=== PATIENT | male | born 1960 | race African-American/Black ===

== ENCOUNTER 2017-04-06 12:55 | Inpatient (IN) | payer MEDICARE, BC ==
[~2017-04-06] VITALS: Ht 172.7 cm; Wt 84.0 kg
[~2017-04-06 12:55] MED LIST: CARV3.1242 PO; CLOP75TA33 PO
[2017-04-06] MEDS ORDERED: ONDANSETRON HCL 4MG/2ML VIAL IV STA (13:19)
[2017-04-06] MEDS ORDERED: SODIUM CHLORIDE 0.9% 1,000 ML IV ONE (13:19)
[2017-04-06] MEDS ORDERED: MORPHINE SULFATE 4 MG/ML CPJ (NOT FOR IM USE) IV STA (13:19)
[2017-04-06 14:03] LABS: BASOPHILS % 0.8 % (0.0-2.0); EOSINOPHILS % 3.5 % (0.0-5.0); HEMATOCRIT. 32.3 % (42.0-52.0); HEMOGLOBIN. 10.7 g/dL (14.0-18.0); LYMPHOCYTES % 26.4 % (20.0-50.0); MEAN CORPUSCULAR HEMOGLOBIN 26.6 pg (28.0-32.0); MEAN CORPUSCULAR VOLUME 80.2 fL (80.0-94.0); MEAN PLATELET VOLUME 7.9 fl (7.4-10.4); MONOCYTES % 6.9 % (2.0-8.0); NEUTROPHILS % 62.4 % (40.0-76.0); PLATELET 214 x1000/uL (130-400); RED BLOOD CELL COUNT 4.03 mill/uL (4.7-6.1); RED CELL DISTRIBUTION WIDTH 17.6 % (11.6-14.6)
[2017-04-06 14:12] LABS: PARTIAL THROMBOPLASTIN TIME 25.9 sec (23.4-31.0); PROTHROMBIN TIME 10.6 sec (9.4-11.6)
[2017-04-06 14:21] LABS: CARBON DIOXIDE 28 mEq/L (21-32); CHLORIDE 111 mEq/L (98-107); CREATINE KINASE 393 IU/L (39-308)
[2017-04-06 14:22] LABS: TROPONIN I 0.04 ng/mL (0.00-0.04)
[2017-04-06 14:24] LABS: CREATINE KINASE MB FRACTION 2.9 ng/mL (0.5-3.6)
[2017-04-06] MEDS ORDERED: ASPIRIN 81MG TABLET PO ONE (14:45)
[2017-04-06] MEDS ORDERED: CLONIDINE 0.1MG TABLET PO PRN (15:00)
[2017-04-06] MEDS ORDERED: CLONIDINE 0.2MG TABLET PO PRN (15:00)
[2017-04-06] MEDS ORDERED: HYDROCODONE/ACETAMINOPHEN 5/325MG TABLET PO PRN (16:30)
[2017-04-06] MEDS ORDERED: MORPHINE SULFATE 2 MG/ML CPJ (NOT FOR IM USE) IV PRN (16:30)
[2017-04-06] MEDS ORDERED: CARISOPRODOL 350 MG TABLET PO PRN (16:30)
[2017-04-06] MEDS: HYDROCODONE/ACETAMINOPHEN 10/325MG TABLET PO PRN ×2 (16:59→23:25)
[2017-04-06 17:21] LABS: CLARITY URINE CLEAR (CLEAR); COLOR URINE YELLOW (YELLOW); GLUCOSE URINE NEGATIVE (NEGATIVE); KETONES URINE NEGATIVE (NEGATIVE); LEUKOCYTE ESTERASE URINE 2+ (NEGATIVE); NITRITE URINE NEGATIVE (NEGATIVE); OCCULT BLOOD URINE NEGATIVE (NEGATIVE); PROTEIN URINE NEGATIVE (NEGATIVE); SPECIFIC GRAVITY URINE 1.012 (1.005-1.030)
[2017-04-06 17:30] LABS: *AMPHETAMINES SCREEN URINE NEGATIVE (NEGATIVE); *BARBITURATES SCREEN URINE NEGATIVE (NEGATIVE); *BENZODIAZEPINES SCREEN URINE PRESUMTIVE POSITIVE (NEGATIVE); *COCAINE SCREEN URINE NEGATIVE (NEGATIVE); CANNABINOID URINE SCREEN NEGATIVE (NEGATIVE); METHADONE URINE SCREEN NEGATIVE (NEGATIVE); OPIATES URINE SCREEN NEGATIVE (NEGATIVE); PHENCYCLIDINE URINE SCREEN NEGATIVE (NEGATIVE)
[2017-04-06] MEDS ORDERED: DEXT 5%/0.45% NACL 1000ML 1,000 ML IV ONE (19:00)
[2017-04-06 20:00] VITALS: BP 138/73
[2017-04-06] MEDS: CARVEDILOL 6.25 MG TABLET PO SCH (22:49)
[2017-04-06] MEDS: AMLODIPINE 2.5MG TABLET PO SCH (22:50)
[2017-04-06] MEDS: LOSARTAN POTASSIUM 25 MG TABLET PO SCH (22:50)
[2017-04-06 23:00] VITALS: BP 145/73
[2017-04-06 23:38] LABS: CREATINE KINASE MB FRACTION 2.9 ng/mL (0.5-3.6); TROPONIN I 0.05 ng/mL (0.00-0.04)
[2017-04-07] VITALS: BP 124/60
[2017-04-07 04:00] VITALS: BP 133/62
[2017-04-07] MEDS: IBUPROFEN 600MG TABLET PO SCH ×4 (05:45→18:00)
[2017-04-07] MEDS: HYDROCODONE/ACETAMINOPHEN 10/325MG TABLET PO PRN ×3 (05:46→20:12)
[2017-04-07 07:47] LABS: BASOPHILS % 0.3 % (0.0-2.0); EOSINOPHILS % 3.6 % (0.0-5.0); HEMATOCRIT. 31.6 % (42.0-52.0); HEMOGLOBIN. 10.4 g/dL (14.0-18.0); LYMPHOCYTES % 38.5 % (20.0-50.0); MEAN CORPUSCULAR HEMOGLOBIN 26.6 pg (28.0-32.0); MEAN CORPUSCULAR VOLUME 80.4 fL (80.0-94.0); MEAN PLATELET VOLUME 8.3 fl (7.4-10.4); MONOCYTES % 7.9 % (2.0-8.0); NEUTROPHILS % 49.7 % (40.0-76.0); PLATELET 206 x1000/uL (130-400); RED BLOOD CELL COUNT 3.93 mill/uL (4.7-6.1); RED CELL DISTRIBUTION WIDTH 17.2 % (11.6-14.6)
[2017-04-07 08:00] VITALS: BP 150/78
[2017-04-07 08:05] LABS: CARBON DIOXIDE 27 mEq/L (21-32); CHLORIDE 110 mEq/L (98-107); CREATINE KINASE 284 IU/L (39-308); CREATINE KINASE MB FRACTION 2.3 ng/mL (0.5-3.6); HDL CHOLESTEROL 50 mg/dL (40-59); LDL CHOLESTEROL 79 mg/dL (5-100); TROPONIN I 0.03 ng/mL (0.00-0.04)
[2017-04-07] MEDS: CARVEDILOL 6.25 MG TABLET PO SCH ×2 (08:12→20:13)
[2017-04-07] MEDS: CLOPIDOGREL 75MG TABLET PO SCH (08:12)
[2017-04-07] MEDS: LOSARTAN POTASSIUM 25 MG TABLET PO SCH ×2 (08:12→20:13)
[2017-04-07] MEDS: AMLODIPINE 2.5MG TABLET PO SCH ×2 (08:12→20:13)
[2017-04-07] MEDS: ASPIRIN 81MG TABLET PO SCH ×2 (08:12→16:45)
[2017-04-07] MEDS ORDERED: PNEUMOCOCCAL 23-VAL P-SAC VAC 0.5 ML IM ONE (10:00)
[2017-04-07] MEDS ORDERED: REGADENOSON 0.4 MG/5 ML IV ONE ×2 (10:00→11:22)
[2017-04-07 16:00] VITALS: BP 164/79
[2017-04-07 20:00] VITALS: BP 141/76
[2017-04-08] VITALS: BP 143/55
[2017-04-08 04:00] VITALS: BP 140/74
[2017-04-08] MEDS: HYDROCODONE/ACETAMINOPHEN 10/325MG TABLET PO PRN ×2 (04:45→11:07)
[2017-04-08 06:12] LABS: BASOPHILS % 0.4 % (0.0-2.0); EOSINOPHILS % 3.4 % (0.0-5.0); HEMATOCRIT. 36.1 % (42.0-52.0); HEMOGLOBIN. 11.7 g/dL (14.0-18.0); LYMPHOCYTES % 40.2 % (20.0-50.0); MEAN CORPUSCULAR HEMOGLOBIN 26.3 pg (28.0-32.0); MEAN CORPUSCULAR VOLUME 81.4 fL (80.0-94.0); MEAN PLATELET VOLUME 8.4 fl (7.4-10.4); MONOCYTES % 7.4 % (2.0-8.0); NEUTROPHILS % 48.6 % (40.0-76.0); PLATELET 240 x1000/uL (130-400); RED BLOOD CELL COUNT 4.44 mill/uL (4.7-6.1); RED CELL DISTRIBUTION WIDTH 17.1 % (11.6-14.6)
[2017-04-08 06:23] LABS: CARBON DIOXIDE 31 mEq/L (21-32); CHLORIDE 105 mEq/L (98-107)
[2017-04-08] MEDS: IBUPROFEN 600MG TABLET PO SCH ×2 (06:38)
[2017-04-08 08:00] VITALS: BP 133/74
[2017-04-08] MEDS ORDERED: IBUP-2030 PO (08:59)
[2017-04-08] MEDS: AMLODIPINE 2.5MG TABLET PO SCH (09:04)
[2017-04-08] MEDS: ASPIRIN 81MG TABLET PO SCH (09:04)
[2017-04-08] MEDS: CLOPIDOGREL 75MG TABLET PO SCH (09:04)
[2017-04-08] MEDS: CARVEDILOL 6.25 MG TABLET PO SCH (09:04)
[2017-04-08] MEDS ORDERED: IPRATROPIUM/ALBUTEROL 0.5-3(2.5)MG/3ML NEB HHN SCH (09:15)
[2017-04-08] MEDS: LOSARTAN POTASSIUM 25 MG TABLET PO SCH (09:27)
[2017-04-08 12:00] VITALS: BP 165/82
[2017-04-08 13:21] VITALS: BP 118/82
== END 2017-04-08 13:35 | disposition home or self-care (01) | DRG 206 ==
LOC: ER 15:14 → ENRESERV 18:17 → 5WST 18:42
PROVIDERS: ADMIT Internal Medicine Critical Care Medicine; ATTEND Internal Medicine Critical Care Medicine
DX: M94.0 Chondrocostal junction syndrome [Tietze] (principal); M62.82 Rhabdomyolysis; I11.9 Hypertensive heart disease without heart failure; J44.9 Chronic obstructive pulmonary disease, unspecified; I25.10 Atherosclerotic heart disease of native coronary artery without angina pectoris; E78.00 Pure hypercholesterolemia, unspecified; E78.5 Hyperlipidemia, unspecified; F17.210 Nicotine dependence, cigarettes, uncomplicated; G89.29 Other chronic pain; M54.5 Low back pain; I25.2 Old myocardial infarction; Z91.19 Patient's noncompliance with other medical treatment and regimen; Z95.5 Presence of coronary angioplasty implant and graft; Z79.899 Other long term (current) drug therapy; V49.9XXA Car occupant (driver) (passenger) injured in unspecified traffic accident, initial encounter; Y93.I9 Activity, other involving external motion; Y92.89 Other specified places as the place of occurrence of the external cause; Y99.8 Other external cause status
CPT/HCPCS: 36415; 71010; 71101; 78452; 80048; 80053; 80061; 80305; 81001; 82550; 82553; 83690; 83735; 83880; 84443; 84484; 85025; 85379; 85610; 85730; 93005; 93017; 93306; 93970; 94664; 96361; 96374; 96375; 99291; A9500; G0482; J2270; J2405; J2785; J7030; J7620

== ENCOUNTER 2017-08-18 13:17 | Emergency (ER) | payer MEDICARE, BC ==
[~2017-08-18 13:17] MED LIST changes: +IBUP-2030 PO
== END 2017-08-18 14:09 | disposition left against medical advice (07) ==
LOC: ER 13:17
DX: M54.2 Cervicalgia (principal); R07.9 Chest pain, unspecified; Z53.21 Procedure and treatment not carried out due to patient leaving prior to being seen by health care provider

== ENCOUNTER 2017-08-19 14:33 | Emergency (ER) | payer MEDICARE, BC ==
[~2017-08-19] VITALS: Ht 180.3 cm; Wt 92.0 kg
[2017-08-19 17:07] LABS: BASOPHILS % 1.4 % (0.0-2.0); EOSINOPHILS % 0.3 % (0.0-5.0); HEMATOCRIT. 39.6 % (42.0-52.0); HEMOGLOBIN. 13.2 g/dL (14.0-18.0); LYMPHOCYTES % 18.9 % (20.0-50.0); MEAN CORPUSCULAR HEMOGLOBIN 26.6 pg (28.0-32.0); MEAN CORPUSCULAR VOLUME 79.9 fL (80.0-94.0); MEAN PLATELET VOLUME 8.2 fl (7.4-10.4); MONOCYTES % 7.3 % (2.0-8.0); NEUTROPHILS % 72.1 % (40.0-76.0); PLATELET 307 x1000/uL (130-400); RED BLOOD CELL COUNT 4.96 mill/uL (4.7-6.1); RED CELL DISTRIBUTION WIDTH 15.9 % (11.6-14.6)
[2017-08-19 17:09] LABS: PROTHROMBIN TIME 10.7 sec (9.4-11.6)
[2017-08-19 17:17] LABS: CARBON DIOXIDE 24 mEq/L (21-32); CHLORIDE 101 mEq/L (98-107); TROPONIN I 0.02 ng/mL (0.00-0.04)
[2017-08-19] MEDS ORDERED: SODIUM CHLORIDE 0.9% 1,000 ML IV ONE (17:45)
[2017-08-19] MEDS ORDERED: KETOROLAC 30MG/ML VIAL IV ONE (18:30)
[2017-08-19] MEDS ORDERED: LIDOCAINE HCL 1%/EPI 1:200,000 30 ML VIAL MC ONE (18:45)
[2017-08-19] MEDS ORDERED: TETANUS, DIPHTHERIA, PERTUSSIS VAC/PF 0.5ML (>7YR OLD) IM ONE (18:45)
[2017-08-19] MEDS ORDERED: LIDOCAINE 1%/EPI 1:200,000 10 ML VIAL IJ NR (19:45)
[2017-08-19 21:20] VITALS: BP 151/74
== END 2017-08-19 21:20 | disposition home or self-care (01) ==
LOC: ER 15:17
DX: B34.9 Viral infection, unspecified (principal); L02.11 Cutaneous abscess of neck; I10 Essential (primary) hypertension; F17.200 Nicotine dependence, unspecified, uncomplicated; Z95.828 Presence of other vascular implants and grafts
CPT/HCPCS: 10060; 36415; 71045; 80053; 84484; 85025; 85610; 90471; 90715; 93005; 96361; 96374; 99285; J1885; J7030

== ENCOUNTER 2018-04-04 08:56 | Inpatient (IN) | payer MEDICARE, BC ==
[~2018-04-04] VITALS: Ht 180.3 cm; Wt 97.5 kg
[2018-04-04] MEDS ORDERED: MORPHINE SULFATE 4 MG/ML CPJ (NOT FOR IM USE) IV STA (10:24)
[2018-04-04] MEDS ORDERED: ASPIRIN 325MG EC TABLET PO ONE (10:30)
[2018-04-04 11:10] LABS: BASOPHILS % 0.3 % (0.0-2.0); EOSINOPHILS % 0.5 % (0.0-5.0); HEMATOCRIT. 35.5 % (42.0-52.0); LYMPHOCYTES % 15.3 % (20.0-50.0); MEAN CORPUSCULAR HEMOGLOBIN 27.5 pg (28.0-32.0); MEAN CORPUSCULAR VOLUME 81.5 fL (80.0-94.0); MEAN PLATELET VOLUME 7.7 fl (7.4-10.4); MONOCYTES % 5.9 % (2.0-8.0); PLATELET 284 x1000/uL (130-400); RED BLOOD CELL COUNT 4.36 mill/uL (4.7-6.1); RED CELL DISTRIBUTION WIDTH 15.6 % (11.6-14.6)
[2018-04-04 11:16] LABS: CHLORIDE 103 mEq/L (98-107)
[2018-04-04 11:22] LABS: PROTHROMBIN TIME 9.6 sec (9.1-11.1)
[2018-04-04] MEDS ORDERED: MORPHINE SULFATE 4 MG/ML CPJ (NOT FOR IM USE) IV PRN (12:00)
[2018-04-04] MEDS ORDERED: ONDANSETRON HCL 4MG/2ML VIAL IV PRN (12:00)
[2018-04-04] MEDS ORDERED: CLONIDINE 0.1MG TABLET PO PRN (12:00)
[2018-04-04] MEDS ORDERED: ACETAMINOPHEN 325MG TABLET PO PRN (12:00)
[2018-04-04 14:36] LABS: T4 FREE 0.92 ng/dL (0.76-1.46)
[2018-04-04] MEDS ORDERED: MORPHINE SULFATE 4 MG/ML CPJ (NOT FOR IM USE) IV ONE (14:45)
[2018-04-04] MEDS ORDERED: IPRATROPIUM/ALBUTEROL 0.5-3(2.5)MG/3ML NEB HHN PRN (16:00)
[2018-04-04 16:30] VITALS: BP 134/98
[2018-04-04] MEDS ORDERED: NICOTINE 21MG PATCH TD NR (17:01)
[2018-04-04 18:00] VITALS: BP 134/73
[2018-04-04] MEDS ORDERED: BENA20TA77 PO (18:13)
[2018-04-04] MEDS: HYDROCODONE/ACETAMINOPHEN 5/325MG TABLET PO PRN (18:22)
[2018-04-04] MEDS: NITROGLYCERIN OINT 1GM/INCH UDPKT TD SCH ×2 (18:22→21:03)
[2018-04-04] MEDS: FERROUS SULFATE 325MG TABLET PO SCH (18:22)
[2018-04-04 20:00] VITALS: BP 149/85
[2018-04-04] MEDS: CARVEDILOL 3.125 MG TABLET PO SCH (21:02)
[2018-04-05] VITALS: BP 104/54
[2018-04-05] MEDS: BUDESONIDE 0.5MG/2ML NEB HHN SCH ×2 (00:54→09:19)
[2018-04-05] MEDS: IPRATROPIUM/ALBUTEROL 0.5-3(2.5)MG/3ML NEB HHN SCH ×3 (00:54→14:17)
[2018-04-05] MEDS: HYDROCODONE/ACETAMINOPHEN 5/325MG TABLET PO PRN ×3 (01:21→11:37)
[2018-04-05 04:00] VITALS: BP 124/58
[2018-04-05] MEDS: FERROUS SULFATE 325MG TABLET PO SCH ×2 (06:19→11:36)
[2018-04-05] MEDS: NITROGLYCERIN OINT 1GM/INCH UDPKT TD SCH (06:20)
[2018-04-05 07:20] LABS: CHLORIDE 101 mEq/L (98-107)
[2018-04-05 07:41] LABS: BASOPHILS % 0.5 % (0.0-2.0); EOSINOPHILS % 1.4 % (0.0-5.0); HEMOGLOBIN. 12.1 g/dL (14.0-18.0); LYMPHOCYTES % 35.3 % (20.0-50.0); MEAN CORPUSCULAR HEMOGLOBIN 27.5 pg (28.0-32.0); NEUTROPHILS % 52.8 % (40.0-76.0); PLATELET 301 x1000/uL (130-400); RED BLOOD CELL COUNT 4.39 mill/uL (4.7-6.1); RED CELL DISTRIBUTION WIDTH 15.5 % (11.6-14.6)
[2018-04-05 08:00] VITALS: BP 115/62
[2018-04-05] MEDS: CARVEDILOL 3.125 MG TABLET PO SCH (08:26)
[2018-04-05] MEDS ORDERED: ASPIRIN 81MG TABLET PO SCH (09:00)
[2018-04-05] MEDS ORDERED: NICOTINE 21MG PATCH TD SCH (09:00)
[2018-04-05] MEDS ORDERED: CLOPIDOGREL 75MG TABLET PO SCH (09:00)
[2018-04-05] MEDS ORDERED: DOCUSATE SODIUM 250MG CAPSULE PO SCH (09:00)
[2018-04-05 12:00] VITALS: BP 106/62
[2018-04-05] MEDS ORDERED: ERGOCALCIFEROL 50000UNITS CAPSULE PO NR (13:30)
[2018-04-05] MEDS ORDERED: GABAPENTIN 300MG CAPSULE PO SCH (14:00)
[2018-04-05 14:11] VITALS: BP 145/80
== END 2018-04-05 14:53 | disposition home or self-care (01) | DRG 206 ==
LOC: ER 09:51 → 5WST 12:00 → EDBEDREQ 14:58 → EDBEDREQSVC 14:58 → ENRESERV 15:36
PROVIDERS: ADMIT Family Medicine Adult Medicine; ATTEND Family Medicine Adult Medicine
DX: M94.0 Chondrocostal junction syndrome [Tietze] (principal); E44.1 Mild protein-calorie malnutrition; D50.9 Iron deficiency anemia, unspecified; I25.10 Atherosclerotic heart disease of native coronary artery without angina pectoris; F17.210 Nicotine dependence, cigarettes, uncomplicated; N52.9 Male erectile dysfunction, unspecified; G89.29 Other chronic pain; M54.5 Low back pain; E78.5 Hyperlipidemia, unspecified; J44.9 Chronic obstructive pulmonary disease, unspecified; I11.9 Hypertensive heart disease without heart failure; Z95.5 Presence of coronary angioplasty implant and graft; Z71.6 Tobacco abuse counseling; I25.2 Old myocardial infarction; Z79.02 Long term (current) use of antithrombotics/antiplatelets; Z68.30 Body mass index [BMI] 30.0-30.9, adult; I10 Essential (primary) hypertension
CPT/HCPCS: 36415; 71045; 80048; 80053; 80061; 83880; 84439; 84443; 84481; 84484; 85025; 85610; 93005; 94640; 96374; 99285; J2270; J7620; J7626

== ENCOUNTER 2021-07-08 08:26 | Emergency (ER) | payer MEDICARE, BC ==
[~2021-07-08] VITALS: Ht 180.3 cm; Wt 92.0 kg
[~2021-07-08 08:26] MED LIST changes: +BENA20TA77 PO
[2021-07-08] MEDS ORDERED: MORPHINE SULFATE 4 MG/ML CPJ (NOT FOR IM USE) IV STA (09:10)
[2021-07-08] MEDS ORDERED: PHENYLEPHRINE HCL 10 MG/ML 1ML (IV VIAL) IV SCH (09:45)
[2021-07-08 09:47] LABS: BASOPHILS % 0.7 % (0.0-2.0); EOSINOPHILS % 2.4 % (0.0-5.0); HEMATOCRIT. 38.7 % (42.0-52.0); HEMOGLOBIN. 12.4 g/dL (14.0-18.0); LYMPHOCYTES % 15.1 % (20.0-50.0); MEAN CORPUSCULAR HEMOGLOBIN 26.3 pg (28.0-32.0); MEAN CORPUSCULAR VOLUME 82.1 fL (80.0-94.0); MEAN PLATELET VOLUME 8.1 fl (7.4-10.4); MONOCYTES % 7.2 % (2.0-8.0); NEUTROPHILS % 74.6 % (40.0-76.0); PLATELET 410 x1000/uL (130-400); RED BLOOD CELL COUNT 4.72 mill/uL (4.7-6.1); RED CELL DISTRIBUTION WIDTH 15.9 % (11.6-14.6)
[2021-07-08] MEDS ORDERED: HYDROMORPHONE HCL/PF 2MG/ML CPJ IV ONE (11:15)
[2021-07-08 11:39] LABS: CLARITY URINE CLEAR (CLEAR); COLOR URINE YELLOW (YELLOW); KETONES URINE NEGATIVE (NEGATIVE); LEUKOCYTE ESTERASE URINE NEGATIVE (NEGATIVE); NITRITE URINE NEGATIVE (NEGATIVE); OCCULT BLOOD URINE NEGATIVE (NEGATIVE); PROTEIN URINE NEGATIVE (NEGATIVE); SPECIFIC GRAVITY URINE 1.014 (1.005-1.030); UROBILINOGEN URINE 0.2 E.U./dL (0.2-1.0)
[2021-07-08 11:58] LABS: *AMPHETAMINES SCREEN URINE NEGATIVE (NEGATIVE); *BARBITURATES SCREEN URINE NEGATIVE (NEGATIVE); *BENZODIAZEPINES SCREEN URINE NEGATIVE (NEGATIVE); *COCAINE SCREEN URINE NEGATIVE (NEGATIVE); CANNABINOID URINE SCREEN NEGATIVE (NEGATIVE); OPIATES URINE SCREEN PRESUMTIVE POSITIVE (NEGATIVE); PHENCYCLIDINE URINE SCREEN NEGATIVE (NEGATIVE)
[2021-07-08 11:59] LABS: METHADONE URINE SCREEN NEGATIVE (NEGATIVE)
[2021-07-08] MEDS ORDERED: OXYCODONE HCL 5MG TABLET PO ONE (15:15)
[2021-07-08] MEDS ORDERED: HYDROCHLOROTHIAZIDE 25MG TABLET PO ONE (18:15)
[2021-07-08] MEDS ORDERED: DIPHENHYDRAMINE 50MG/ML VIAL IV ONE (19:30)
[2021-07-08] MEDS ORDERED: MORPHINE SULFATE 4 MG/ML CPJ (NOT FOR IM USE) IV ONE (23:45)
[2021-07-09] MEDS ORDERED: MORPHINE SULFATE 4 MG/ML CPJ (NOT FOR IM USE) IV ONE (04:30)
[2021-07-09] MEDS ORDERED: HYDROMORPHONE HCL/PF 2MG/ML CPJ IV ONE (09:15)
[2021-07-09] MEDS ORDERED: MORPHINE SULFATE 4 MG/ML CPJ (NOT FOR IM USE) IV STA (17:59)
[2021-07-09] MEDS ORDERED: ONDANSETRON HCL 4MG/2ML INJ IV STA (17:59)
[2021-07-10] MEDS ORDERED: HYDROMORPHONE HCL/PF 2MG/ML CPJ IV ONE (00:45)
[2021-07-10] MEDS ORDERED: ACETAMINOPHEN WITH CODEINE 300/30MG TABLET PO ONE (08:00)
[2021-07-10] MEDS ORDERED: MORPHINE SULFATE 4 MG/ML CPJ (NOT FOR IM USE) IV ONE ×3 (08:15→16:45)
[2021-07-10] MEDS ORDERED: MORPHINE SULFATE 4 MG/ML CPJ (NOT FOR IM USE) IV STA ×2 (21:33→23:57)
[2021-07-10] MEDS ORDERED: ONDANSETRON HCL 4MG/2ML INJ IV STA ×2 (21:33→23:57)
[2021-07-11] MEDS ORDERED: HYDROMORPHONE HCL/PF 2MG/ML CPJ IV ONE (05:30)
[2021-07-11 08:33] LABS: BASOPHILS % 0.4 % (0.0-2.0); EOSINOPHILS % 0.3 % (0.0-5.0); HEMATOCRIT. 39.5 % (42.0-52.0); HEMOGLOBIN. 12.8 g/dL (14.0-18.0); LYMPHOCYTES % 9.6 % (20.0-50.0); MEAN CORPUSCULAR HEMOGLOBIN 26.7 pg (28.0-32.0); MEAN CORPUSCULAR VOLUME 82.2 fL (80.0-94.0); MEAN PLATELET VOLUME 8.3 fl (7.4-10.4); MONOCYTES % 8.2 % (2.0-8.0); NEUTROPHILS % 81.5 % (40.0-76.0); PLATELET 343 x1000/uL (130-400); RED CELL DISTRIBUTION WIDTH 15.7 % (11.6-14.6)
[2021-07-11 08:42] LABS: CHLORIDE 101 mEq/L (98-107)
[2021-07-11] MEDS ORDERED: OXYC-105 MT (08:59)
[2021-07-11 09:35] VITALS: BP 137/68
== END 2021-07-11 09:37 | disposition home or self-care (01) ==
LOC: ER 08:26
DX: N48.30 Priapism, unspecified (principal); I25.10 Atherosclerotic heart disease of native coronary artery without angina pectoris; I11.9 Hypertensive heart disease without heart failure; I25.2 Old myocardial infarction; F11.10 Opioid abuse, uncomplicated; F17.200 Nicotine dependence, unspecified, uncomplicated; Z95.5 Presence of coronary angioplasty implant and graft; Z79.899 Other long term (current) drug therapy; Z98.890 Other specified postprocedural states; Z20.822 Contact with and (suspected) exposure to COVID-19
CPT/HCPCS: 36415; 80053; 80305; 81003; 85025; 87426; 96374; 96375; 96376; 99285; J1170; J1200; J2270; J2405; J2370

== ENCOUNTER 2021-07-30 08:06 | Emergency (ER) | payer MEDICARE, BC ==
[~2021-07-30] VITALS: Ht 180.3 cm; Wt 100.0 kg
[~2021-07-30 08:06] MED LIST changes: +OXYC-105 MT
[2021-07-30] MEDS ORDERED: MORPHINE SULFATE 4 MG/ML CPJ (NOT FOR IM USE) IV ONE (09:15)
[2021-07-30 09:32] LABS: BASOPHILS % 1.2 % (0.0-2.0); EOSINOPHILS % 1.9 % (0.0-5.0); HEMATOCRIT. 32.1 % (42.0-52.0); HEMOGLOBIN. 10.8 g/dL (14.0-18.0); LYMPHOCYTES % 19.8 % (20.0-50.0); MEAN CORPUSCULAR HEMOGLOBIN 27.2 pg (28.0-32.0); MEAN CORPUSCULAR VOLUME 80.6 fL (80.0-94.0); MEAN PLATELET VOLUME 7.6 fl (7.4-10.4); MONOCYTES % 9.9 % (2.0-8.0); NEUTROPHILS % 67.2 % (40.0-76.0); PLATELET 439 x1000/uL (130-400); RED BLOOD CELL COUNT 3.98 mill/uL (4.7-6.1); RED CELL DISTRIBUTION WIDTH 15.5 % (11.6-14.6)
[2021-07-30 09:39] LABS: CHLORIDE 109 mEq/L (98-107)
[2021-07-30 09:42] LABS: CLARITY URINE CLEAR (CLEAR); COLOR URINE YELLOW (YELLOW); KETONES URINE NEGATIVE (NEGATIVE); LEUKOCYTE ESTERASE URINE NEGATIVE (NEGATIVE); NITRITE URINE NEGATIVE (NEGATIVE); OCCULT BLOOD URINE NEGATIVE (NEGATIVE); PROTEIN URINE NEGATIVE (NEGATIVE); UROBILINOGEN URINE 0.2 E.U./dL (0.2-1.0)
[2021-07-30 09:43] LABS: ETHANOL BLOOD < 10 mg/dL
[2021-07-30 10:10] LABS: *BENZODIAZEPINES SCREEN URINE NEGATIVE (NEGATIVE); *COCAINE SCREEN URINE NEGATIVE (NEGATIVE); METHADONE URINE SCREEN NEGATIVE (NEGATIVE); OPIATES URINE SCREEN PRESUMTIVE POSITIVE (NEGATIVE)
[2021-07-30 10:11] LABS: *AMPHETAMINES SCREEN URINE NEGATIVE (NEGATIVE); *BARBITURATES SCREEN URINE NEGATIVE (NEGATIVE); CANNABINOID URINE SCREEN NEGATIVE (NEGATIVE); PHENCYCLIDINE URINE SCREEN NEGATIVE (NEGATIVE)
[2021-07-30 11:35] VITALS: BP 160/82
== END 2021-07-30 11:35 | disposition left against medical advice (07) ==
LOC: ER 08:06
DX: R42 Dizziness and giddiness (principal); I10 Essential (primary) hypertension; I25.2 Old myocardial infarction; Z79.899 Other long term (current) drug therapy
CPT/HCPCS: 36415; 71045; 80053; 80305; 80320; 81003; 82962; 84484; 85025; 93005; 96374; 99285; J2270; G0480

== ENCOUNTER 2022-06-25 12:47 | Emergency (ER) | payer MEDICARE, BC ==
[~2022-06-25] VITALS: Ht 175.3 cm; Wt 86.0 kg
[2022-06-25] MEDS ORDERED: ACETAMINOPHEN 325MG TABLET PO STA (14:32)
[2022-06-25] MEDS ORDERED: FAMOTIDINE 20MG TABLET PO ONE (14:45)
[2022-06-25] MEDS ORDERED: MAGNESIUM/ALUMINUM HYDROXIDE/SIMETHICONE 30ML UDC PO ONE (14:45)
[2022-06-25] MEDS ORDERED: ONDANSETRON 4MG ODT PO ONE (14:45)
[2022-06-25 15:10] LABS: BASOPHILS % 0.4 % (0.0-2.0); EOSINOPHILS % 0.3 % (0.0-5.0); HEMATOCRIT. 42.8 % (42.0-52.0); HEMOGLOBIN. 14.2 g/dL (14.0-18.0); LYMPHOCYTES % 12.8 % (20.0-50.0); MEAN CORPUSCULAR HEMOGLOBIN 27.8 pg (28.0-32.0); MEAN CORPUSCULAR VOLUME 83.9 fL (80.0-94.0); MEAN PLATELET VOLUME 8.3 fl (7.4-10.4); NEUTROPHILS % 80.5 % (40.0-76.0); PLATELET 243 x1000/uL (130-400); RED CELL DISTRIBUTION WIDTH 15.3 % (11.6-14.6)
[2022-06-25 15:17] LABS: CHLORIDE 98 mEq/L (98-107)
[2022-06-25 15:25] LABS: ETHANOL BLOOD < 10 mg/dL
[2022-06-25] MEDS ORDERED: KETOROLAC 30MG/ML VIAL IV STA (17:10)
[2022-06-25 17:27] VITALS: BP 176/84
[2022-06-25] MEDS ORDERED: SODIUM CHLORIDE 0.9% 1,000 ML IV ONE (17:30)
== END 2022-06-25 19:10 | disposition left against medical advice (07) ==
LOC: ER 12:47
DX: K85.90 Acute pancreatitis without necrosis or infection, unspecified (principal); I10 Essential (primary) hypertension; R94.31 Abnormal electrocardiogram [ECG] [EKG]; I25.2 Old myocardial infarction
CPT/HCPCS: 36415; 71045; 80053; 80320; 83690; 85025; 93005; 96374; 99285; J1885; Q0162; G0480